=== PATIENT | male | born 1960 ===

== ENCOUNTER 2016-08-05 15:04 | Inpatient (IN) | payer OTHER ==
[~2016-08-05] VITALS: Ht 172.7 cm; Wt 76.6 kg
[2016-08-05] MEDS ORDERED: SODIUM CHLORIDE 0.9% 1000ML 1,000 ML IV STA (15:24)
[2016-08-05] MEDS ORDERED: MULTI-VITAMIN INFUSION INJ 10 ML, THIAMINE HCL INJ 100 MG, FoLIC ACID INJ 1 MG in SODIU... IV ONE (15:30)
[2016-08-05 15:48] LABS: BASO % 0.2 %; BASO ABS # 0.03 K/uL (0-0.2); COMPLETE YES; EOS % 0.2 %; HEMATOCRIT 44.3 % (42-52); IG% 0.7 %; LYMPH % 14.7 %; LYMPH ABS # 1.99 K/uL (1.2-3.4); MEAN CELL VOLUME 101.6 fL (80-100); MEAN CORPUSCULAR HGB CONC 32.5 g/dl (32-36); MEAN PLATELET VOLUME 10.4 fL (7.4-10.4); MONO % 18.7 %; NEUT % 65.5 %; PLATELET COUNT 171 K/uL (130-400); RED BLOOD COUNT 4.36 M/uL (4.7-6.1)
[2016-08-05 15:59] VITALS: O2SAT 95
[2016-08-05 16:05] LABS: BUN/CREATININE RATIO 11.3 (10-20); CALCIUM 9.4 mg/dl (8.5-10.1); CREATININE 3.3 mg/dl (0.60-1.40); POTASSIUM 2.8 mmol/L (3.5-5.1)
[2016-08-05 16:08] LABS: PARTIAL THROMBOPLASTIN RATIO 0.9; PROTHROMBIN TIME (PATIENT) 10.6 SECONDS (9.0-12.0)
--- NOTE | 2016-08-05 16:12 | DIAGNOSTIC IMAGING REPORT ---
CT HEAD WITHOUT CONTRAST (CT) CLINICAL HISTORY: Acute change in mental status COMPARISON STUDY: No previous studies for comparison. TECHNIQUE: Axial CT of the brain is performed from the vertex to the skull base. IV contrast was not administered for this examination. CT DOSE: 884.08 mGy.cm FINDINGS: No intra or extra-axial mass lesions are visualized. There is no CT evidence of acute cortical infarction. There is no evidence of midline shift. There is no acute hemorrhage. No calvarial fractures are visualized. There are minimal white matter hypodensities likely on a small vessel basis. There is no evidence of pathologic ventricular dilatation. There is no evidence of acute sinusitis. There is a right maxillary sinus retention cyst. IMPRESSION: No acute intracranial findings Electronically signed by: Jonel Talavera M.D. 08/05/2016 4:10 PM Dictated Date/Time: 08/05/2016 4:09 PM
[2016-08-05] MEDS ORDERED: THIA100T11 PO (16:14)
[2016-08-05] MEDS ORDERED: CHLO25CA9 PO (16:14)
[2016-08-05] MEDS ORDERED: THIA100T13 PO (16:14)
[2016-08-05] MEDS ORDERED: PRVHFAIN INH (16:14)
[2016-08-05] MEDS ORDERED: [UNRECOGNIZED DRUG - CODE] IM (16:18)
[2016-08-05] MEDS ORDERED: CHLORDIAZEPOXIDE 25 MG CAP PO SCH (17:00)
[2016-08-05] MEDS ORDERED: ALUMINUM/MAGNESIUM/SIMETH (MAALOX MAX) 30 ML UDC PO PRN (17:00)
[2016-08-05] MEDS ORDERED: POLYETHYLENE (MIRALAX) 17 GM PACK PO PRN (17:00)
[2016-08-05] MEDS ORDERED: NITROGLYCERIN 0.4 MG SL PER TAB CHARGE SL PRN (17:00)
[2016-08-05] MEDS ORDERED: ONDANSETRON INJ 2 MG/ML 2 ML VIAL IV PRN (17:00)
[2016-08-05] MEDS ORDERED: MAGNESIUM HYDROXIDE SUSP 30 ML UDC PO PRN (17:00)
[2016-08-05] MEDS ORDERED: GABAPENTIN 600 MG TAB PO SCH (17:00)
[2016-08-05] MEDS ORDERED: LORAZEPAM 1 MG TAB PO PRN ×2 (17:00)
[2016-08-05] MEDS ORDERED: ALBUTEROL HFA 8 GM INHALER INH PRN (17:00)
--- NOTE | 2016-08-05 17:27 | History and Physical ---
History & Physical Date & Time of Service: Aug 05, 2016 at 17:03 Chief Complaint: Alcohol Withdrawl Primary Care Physician: Jonna AGRAWAL History of Present Illness Source: patient, hospital records Patient is a 56 y/o male, with significant PMHx of alcohol and tobacco abuse, who presented to the ED from Jonna AGRAWAL due to hallucinations/alcohol withdrawal. Patient has been placed on Librium and Thiamine Jonna AGRAWAL for alcohol detox process. Per ED records, patient started to experiencing hallucinations today. ROS and HPI per patient unreliable secondary to mental status. According to the patient, he takes a "whole list" of medications, but cannot state what medications or for what condition. Patient states he is experiencing intermittent left-sided chest pain that radiates "everywhere." Patient admits to chronic SOB due to COPD. Patient denies any urinary symptoms, but admits to dark urine at times. Patient states he has been a heavy drinker for many years. Per patient, his last drink was 14 days ago. He denies any cardiac history. He states he has a spot on his liver and kidney, but they have done biopsies, and "no one knows what it is." He admits to bilateral lower extremity numbness/tingling/weakness secondary to back surgery. He states he has been eating and drinking OK. Complete positive ROS. Limited HPI/PMHx/Surgical history/FHx secondary to mental status/no past records available Past Medical/Surgical History Medical Problems- limited PMHx secondary to patient's mental status: 1. Alcohol abuse 2. Tobacco abuse Surgical history- limited/unsure of reliability secondary to mental status: 1. Colectomy s/p ostomy- resolved 2. Back surgery Family History Family history not obtained secondary to patients mental status Social History Smoking Status: Current Every Day Smoker Allergies Coded Allergies: No Known Allergies (Unverified , 08/05/16) Home Medications Scheduled Chlordiazepoxide Hcl (Librium), 50 MG PO UD Thiamine Hcl (Vitamin B-1), 100 MG PO UD Thiamine Hcl (Thiamine Hcl), 100 MG IM UD Scheduled PRN Albuterol (Ventolin Hfa), 2 PUFFS INH QID PRN for SOB/Wheezing Physical Exam Vital Signs Date Time Temp Pulse Resp B/P Pulse Ox O2 Delivery O2 Flow Rate FiO2 08/05/16 16:31 87 08/05/16 15:59 94 18 106/64 95 4/22/17 15:08 36.9 111 20 90/62 93 Room Air General Appearance: no apparent distress Head: normocephalic, atraumatic Eyes: PERRL, + abnormal sclerae exam (icterus ) ENT: hearing grossly normal Neck: supple Respiratory/Chest: lungs clear, no respiratory distress, no accessory muscle use Cardiovascular: regular rate, rhythm Abdomen/GI: normal bowel sounds, non tender, soft Extremities/Musculoskelatal: no calf tenderness, no pedal edema Neurologic/Psych: alert, normal mood/affect, oriented x 3 Skin: warm/dry, no rash Diagnostics Laboratory Results Results Past 24 Hours Test 08/05/16 15:36 08/05/16 15:39 Range/Units White Blood Count 13.50 4.8-10.8 K/uL Red Blood Count 4.36 4.7-6.1 M/uL Hemoglobin 14.4 14.0-18.0 g/dL Hematocrit 44.3 42-52 % Mean Corpuscular Volume 101.6 80-100 fL Mean Corpuscular Hemoglobin 33.0 25-34 pg Mean Corpuscular Hemoglobin Concent 32.5 32-36 g/dl Platelet Count 171 130-400 K/uL Mean Platelet Volume 10.4 7.4-10.4 fL Neutrophils (%) (Auto) 65.5 % Lymphocytes (%) (Auto) 14.7 % Monocytes (%) (Auto) 18.7 % Eosinophils (%) (Auto) 0.2 % Basophils (%) (Auto) 0.2 % Neutrophils # (Auto) 8.84 1.4-6.5 K/uL Lymphocytes # (Auto) 1.99 1.2-3.4 K/uL Monocytes # (Auto) 2.52 0.11-0.59 K/uL Eosinophils # (Auto) 0.03 0-0.5 K/uL Basophils # (Auto) 0.03 0-0.2 K/uL RDW Standard Deviation 54.9 36.4-46.3 fL RDW Coefficient of Variation 14.8 11.5-14.5 % Immature Granulocyte % (Auto) 0.7 % Immature Granulocyte # (Auto) 0.09 0.00-0.02 K/uL Prothrombin Time 10.6 9.0-12.0 SECONDS Prothromb Time International Ratio 1.0 0.9-1.1 Activated Partial Thromboplast Time 23.9 21.0-31.0 SECONDS Partial Thromboplastin Ratio 0.9 Sodium Level 142 136-145 mmol/L Potassium Level 2.8 3.5-5.1 mmol/L Chloride Level 100 98-107 mmol/L Carbon Dioxide Level 29 21-32 mmol/L Anion Gap 13.0 3-11 mmol/L Blood Urea Nitrogen 37 7-18 mg/dl Creatinine 3.30 0.60-1.40 mg/dl Est Creatinine Clear Calc Drug Dose 23.9 ml/min Estimated GFR () 22.8 Estimated GFR (Non- 19.6 BUN/Creatinine Ratio 11.3 10-20 Random Glucose 99 70-99 mg/dl Calcium Level 9.4 8.5-10.1 mg/dl Magnesium Level 1.8 1.8-2.4 mg/dl Total Bilirubin 1.4 0.2-1 mg/dl Direct Bilirubin 0.5 0-0.2 mg/dl Aspartate Amino Transf (AST/SGOT) 44 15-37 U/L Alanine Aminotransferase (ALT/SGPT) 51 12-78 U/L Alkaline Phosphatase 148 45-117 U/L Ammonia 14.0 11-32 umol/L Total Protein 7.7 6.4-8.2 gm/dl Albumin 4.1 3.4-5.0 gm/dl Bedside Troponin I 0.010 0-0.045 ng/ml Diagnostic Radiology CT HEAD WITHOUT CONTRAST (CT) CLINICAL HISTORY: Acute change in mental status COMPARISON STUDY: No previous studies for comparison. TECHNIQUE: Axial CT of the brain is performed from the vertex to the skull base. IV contrast was not administered for this examination. CT DOSE: 884.08 mGy.cm FINDINGS: No intra or extra-axial mass lesions are visualized. There is no CT evidence of acute cortical infarction. There is no evidence of midline shift. There is no acute hemorrhage. No calvarial fractures are visualized. There are minimal white matter hypodensities likely on a small vessel basis. There is no evidence of pathologic ventricular dilatation. There is no evidence of acute sinusitis. There is a right maxillary sinus retention cyst. IMPRESSION: No acute intracranial findings Electronically signed by: Jonel Talavera M.D. 08/05/2016 4:10 PM Dictated Date/Time: 08/05/2016 4:09 PM The status of this report is Signed. Draft = Not yet reviewed or approved by Radiologist. Signed = Reviewed and approved by Radiologist. EKG ROSA HANSEN ID:[id number] 05-AUG-2016 15:31:20 [facility] Normal sinus rhythm Septal infarct , age undetermined Abnormal ECG No previous ECGs available 25mm/s 10mm/mV 150Hz 8.0 SP2 12SL 241 ALESSANDRO: 13 Referred by: Jonna SCI Unconfirmed Vent. rate 97 BPM VT interval 160 ms QRS duration 86 ms QT/QTc 372/472 ms P-R-T axes 16 72 125 1960 (56 yr) Male Room: Loc:15 Flying Teacher:SILVIO Borjas ind: Impression Assessment and Plan 56 y/o male, with significant PMHx of alcohol and tobacco abuse, who presented to the ED from TANJA Coyle due to hallucinations/alcohol withdrawal. Hallucinations, likely secondary to alcohol withdrawal: - Admit to tele for cardiac monitoring - Trend cardiac enzymes- initial trop negative - Abnormal EKG- repeat tomorrow AM and PRN w/ CP - Alcohol withdrawal protocol - CT of head- no acute intracranial findings - Check b12/folate/thiamine ?PADDY on CKD, ?stage IV: - Tread w/ IVF - Follow PRP - Consider renal US if kidney function does not improve with IVF Hypokalemia: Replete w/ IVF + 40 mEq KCL Leukocytosis: - Pending UA - No s/s of infections at this time- no need for antibiotics at this time- continue to follow CBC Elevated LFTs, ?secondary to alcoholic cirrhosis: - Follow CMP - Consider liver US if worsening Tobacco abuse: Smoking cessation counselling GI Prophylaxis: Protonix, Maalox PRN, IV Zofran PRN, Colace and/or Milk of Mag PRN DVT prophylaxis: Heparin 5000 units SQ q12 hrs, DAVID and SCDs Code Status: LEVEL I, FULL Dispo: From Jonna AGRAWAL Level of Care Telemetry Resuscitation Status FULL RESUSCITATION VTE Prophylaxis VTE Risk Assessment Done? Y/N: Yes Risk Level: Moderate Given or contraindicated: Unfractionated heparin SQ, T.E.D. Stockings, SCD's Assessment and Plan Attending Addendum: I have physically seen and examined this patient, have directed their medical care, have supervised the PA's activity, and agree with the H&P as noted above, with the following changes: NONE.
[2016-08-05 18:47] VITALS: Ht 172.7 cm; Wt 76.6 kg
--- NOTE | 2016-08-05 19:01 | DIAGNOSTIC IMAGING REPORT ---
CHEST 2 VIEWS ROUTINE CLINICAL HISTORY: Pneumonia COMPARISON STUDY: No previous studies for comparison. FINDINGS: The heart is normal in size. There are multiple old rib fractures. There is a severe compression fracture the thoracolumbar junction. There is interstitial thickening. There are more focal airspace opacities the left lung base, suspicious for pneumonia. Radiographic follow-up is recommended. There is an ovoid calcification adjacent the right humeral neck. [ IMPRESSION: 1. Interstitial thickening 2. Left basal airspace opacities suspicious for pneumonia. Radiographic follow-up is recommended. Electronically signed by: Jonel Talavera M.D. 08/05/2016 6:59 PM Dictated Date/Time: 08/05/2016 6:58 PM
--- NOTE | 2016-08-05 19:48 | EMERGENCY ROOM VISIT NOTE ---
History Report prepared by Mariam: Oleg Moss Under the Supervision of: Dr. Nikolay Rios M.D. First contact with patient: 15:15 Chief Complaint: ALTERED MENTAL STATUS Stated Complaint: ALCOHOL WITHDRAWL History of Present Illness The patient is a 56 year old male who presents to the Emergency Room with complaints of intermittent hallucinations beginning today. He is currently incarcerated for violating parole and has been detoxing from alcohol for over a week. He states that he has been drinking significant amounts of alcohol for the past year. Per [employer], the patient began hallucinating today. The patient states that he believes that "the green pills" that he was given was causing his hallucinations. He believes the pills were Librium. He states that his chronic pain is related to a lower spinal surgery that has now caused him to have some baseline numbness in his legs. He denies any recent falls or trauma. The patient also complains of some shortness of breath and chest pain. He states that his shortness of breath is unchanged from his baseline, and that he uses an inhaler for emphysema. His chest pain was present two days ago intermittently, and would be present for 10 seconds at a time, occurring roughly every 30 minutes. He describes the pain as very sharp and fleeting. It was located over the left sternal border. The patient notes that he has very poor vision at baseline but denies any acute visual changes. He denies any black or bloody stools. Source of History: patient Onset: today Position: other (goal) Quality: other (hallucinations) Timing: resolved Modifying Factors (Worsening): other (green pills) Associated Symptoms: + SOB (unchanged from baseline), + chest pain (two days ago, intermittently ), No hematochezia, No melena Review of Systems See HPI for pertinent positives & negatives. A total of 10 systems reviewed and were otherwise negative. Past Medical & Surgical Social History Problems: (1) Alcohol abuse Family History No pertinent family history stated. Social History Smoking Status: Current Every Day Smoker Housing Status: other (incarcerated) Occupation Status: other (incarcerated) Current/Historical Medications Scheduled Chlordiazepoxide Hcl (Librium), 50 MG PO UD Thiamine Hcl (Vitamin B-1), 100 MG PO UD Thiamine Hcl (Thiamine Hcl), 100 MG IM UD Scheduled PRN Albuterol (Ventolin Hfa), 2 PUFFS INH QID PRN for SOB/Wheezing Allergies Coded Allergies: No Known Allergies (Unverified , 08/05/16) Physical Exam Vital Signs Date Time Temp Pulse Resp B/P Pulse Ox O2 Delivery O2 Flow Rate FiO2 08/05/16 18:47 Room Air 08/05/16 16:31 87 08/05/16 15:59 94 18 106/64 95 08/05/16 15:08 36.9 111 20 90/62 93 Room Air Physical Exam Constitutional: Vital signs reviewed. Eyes: Pupils are equal round reactive to light. Conjunctiva are noninjected. ENT: Pharynx is clear without erythema or exudate. Mucous membranes are moist. Neck supple without meningeal signs. Respiratory: Clear to auscultation bilaterally. Breath sounds are equal bilaterally. Cardiovascular: Regular rate and rhythm. No rubs or gallops. GI: Soft, nondistended and nontender. Bowel sounds are present. Musculoskeletal: No peripheral edema. No lower extremity tenderness. Integumentary: No cyanosis. Neurological: The patient is awake, alert and oriented x3. Cranial nerves II- XII are intact. Motor is 5 out of 5 all extremities. Sensation is intact to light touch all extremities. Normal speech. No pronator drift. No asterixis. Psychiatric: Normal affect. Medical Decision & Procedures ER Provider Diagnostic Interpretation: CT results as stated below per my review and radiologist interpretation. CT HEAD WITHOUT CONTRAST (CT) FINDINGS: No intra or extra-axial mass lesions are visualized. There is no CT evidence of acute cortical infarction. There is no evidence of midline shift. There is no acute hemorrhage. No calvarial fractures are visualized. There are minimal white matter hypodensities likely on a small vessel basis. There is no evidence of pathologic ventricular dilatation. There is no evidence of acute sinusitis. There is a right maxillary sinus retention cyst. IMPRESSION: No acute intracranial findings Electronically signed by: Jonel Talavera M.D. Laboratory Results 08/05/16 15:36 Red Blood Count 4.36, Mean Corpuscular Volume 101.6, Mean Corpuscular Hemoglobin 33.0, Mean Corpuscular Hemoglobin Concent 32.5, Mean Platelet Volume 10.4, Neutrophils (%) (Auto) 65.5, Lymphocytes (%) (Auto) 14.7, Monocytes (%) ( Auto) 18.7, Eosinophils (%) (Auto) 0.2, Basophils (%) (Auto) 0.2, Neutrophils # (Auto) 8.84, Lymphocytes # (Auto) 1.99, Monocytes # (Auto) 2.52, Eosinophils # ( Auto) 0.03, Basophils # (Auto) 0.03 08/05/16 15:36 Test 08/05/16 15:36 08/05/16 15:39 08/05/16 18:37 White Blood Count 13.50 K/uL (4.8-10.8) Red Blood Count 4.36 M/uL (4.7-6.1) Hemoglobin 14.4 g/dL (14.0-18.0) Hematocrit 44.3 % (42-52) Mean Corpuscular Volume 101.6 fL (80-100) Mean Corpuscular Hemoglobin 33.0 pg (25-34) Mean Corpuscular Hemoglobin Concent 32.5 g/dl (32-36) Platelet Count 171 K/uL (130-400) Mean Platelet Volume 10.4 fL (7.4-10.4) Neutrophils (%) (Auto) 65.5 % Lymphocytes (%) (Auto) 14.7 % Monocytes (%) (Auto) 18.7 % Eosinophils (%) (Auto) 0.2 % Basophils (%) (Auto) 0.2 % Neutrophils # (Auto) 8.84 K/uL (1.4-6.5) Lymphocytes # (Auto) 1.99 K/uL (1.2-3.4) Monocytes # (Auto) 2.52 K/uL (0.11-0.59) Eosinophils # (Auto) 0.03 K/uL (0-0.5) Basophils # (Auto) 0.03 K/uL (0-0.2) RDW Standard Deviation 54.9 fL (36.4-46.3) RDW Coefficient of Variation 14.8 % (11.5-14.5) Immature Granulocyte % (Auto) 0.7 % Immature Granulocyte # (Auto) 0.09 K/uL (0.00-0.02) Prothrombin Time 10.6 SECONDS (9.0-12.0) Prothromb Time International Ratio 1.0 (0.9-1.1) Activated Partial Thromboplast Time 23.9 SECONDS (21.0-31.0) Partial Thromboplastin Ratio 0.9 Anion Gap 13.0 mmol/L (3-11) Est Creatinine Clear Calc Drug Dose 23.9 ml/min Estimated GFR () 22.8 Estimated GFR (Non- 19.6 BUN/Creatinine Ratio 11.3 (10-20) Calcium Level 9.4 mg/dl (8.5-10.1) Magnesium Level 1.8 mg/dl (1.8-2.4) Total Bilirubin 1.4 mg/dl (0.2-1) Direct Bilirubin 0.5 mg/dl (0-0.2) Aspartate Amino Transf (AST/SGOT) 44 U/L (15-37) Alanine Aminotransferase (ALT/SGPT) 51 U/L (12-78) Alkaline Phosphatase 148 U/L (45-117) Ammonia 14.0 umol/L (11-32) Total Protein 7.7 gm/dl (6.4-8.2) Albumin 4.1 gm/dl (3.4-5.0) Bedside Troponin I 0.010 ng/ml (0-0.045) Vitamin B12 Level 1081 pg/mL (211-911) Folate > 24.00 ng/mL (>5.38) Laboratory results as reviewed by me. Medications Administered Medications (Trade) Dose Ordered Sig/Raquel Route Start Time Stop Time Status Last Admin Dose Admin Sodium Chloride 1,000 ml @ 999 mls/hr Q1H1M STAT IV 08/05/16 15:24 08/05/16 16:24 DC 08/05/16 15:43 999 MLS/HR Multivitamins/ Thiamine HCl/ Folic Acid/Sodium Chloride (Mvi Infusion Inj/Vitamin B-1 Inj/Folvite Inj/ Nss 1000ml) 1,011.2 ml @ 500 mls/ hr Q2H2M ONCE IV 08/05/16 15:30 08/05/16 17:31 DC 08/05/16 16:23 500 MLS/HR ECG Indication: chest pain Rate (beats per minute): 97 Rhythm: normal sinus Findings: Q waves (Inferior), no ectopy Comparison ECG Date: no prior available ED Course 1514: The patient was evaluated in room C9. A complete history and physical exam was performed. 1524: Ordered Sodium Chloride 1000 ml @ 999 mls/hr IV. 1530: Ordered Multivitamins 10 mL/Thiamine HCl 100 mg/Folic Acid 100 mg/Sodium Chloride 1011.2 ml @ 500 mls/hr IV. 1620: I reassessed the patient. His blood pressure is now 132/60. He states that he has no history of kidney disease other than having "a spot" on his kidney. He notes that he has urinated eight times today. 1637: I discussed the patient's test results and treatment plan with him. He verbalized agreement and understanding. The patient will be evaluated for further management. Medical Decision This is a 56-year-old male sent here for evaluation of hallucinations with hypotension. Differential diagnosis includes Wernicke's encephalopathy, alcohol withdrawal, metabolic derangement, intracranial mass, intracranial hemorrhage, infection, dehydration. I did perform a limited focused review of portions of the patient's old chart on the electronic medical record. The patient has had no recent pertinent visits to this hospital. I did evaluate the patient as noted above. IV access was established. The patient was placed on a continuous teletypesetter monitor. He is slightly hypertensive. He was given a liter normal saline IV. He was also given a banana bag IV. His blood pressure did improve. I did order and personally review the patient's 12-lead EKG as described above. I did order and review the patient's blood work as noted in the electronic medical record. He has hypokalemia and a creatinine of 3.3. I did reassess the patient. I did discuss the test results with him. He states that he has no history of kidney problems. I therefore recommend hospitalization for further evaluation. I did order a CT of the head. I did review the images myself as well as the radiology report as described above. I did discuss the case with the hospitalist and case specialist. Impression Primary Impression: Acute renal failure Additional Impressions: Hypotension Hallucination Hypokalemia Scribe Attestation The scribe's documentation has been prepared under my direct and personally reviewed by me in its entirety. I confirm that the note above accurately reflects all work, treatment, procedures, and medical decision making performed by me. Departure Information Dispostion Being Evaluated By Hospitalist Forms HOME CARE DOCUMENTATION FORM, IMPORTANT VISIT INFORMATION Patient Instructions My [facility] Problem Qualifiers Primary Impression: Acute renal failure Acute renal failure type: unspecified Qualified Codes: N17.9 - Acute kidney failure, unspecified Additional Impressions: Hypotension Hypotension type: unspecified hypotension type Qualified Codes: I95.9 - Hypotension, unspecified
[2016-08-05 19:58] VITALS: BP 166/109; PULSE 92; TEMP 36.7; O2SAT 92
[2016-08-05 20:13] LABS: URINE APPEARANCE CLEAR (CLEAR); URINE COLOR DK YELLOW; URINE EPITHELIAL CELL AUTO >30 /lpf (0-5); URINE NITRITE NEG (NEG); URINE SPECIFIC GRAVITY 1.014 (1.000-1.030); UROBILINOGEN NEG (NEG); ZZUR CULT IF INDIC CLEAN CATCH NO
[2016-08-05 20:38] LABS: MANUAL MICROSCOPIC REQUIRED? NO; REVIEW REQ? YES
[2016-08-05 20:41] LABS: URINE BILIRUBIN NEG (NEG)
[2016-08-05] MEDS ORDERED: MULTI-VITAMIN INFUSION INJ 10 ML, THIAMINE HCL INJ 100 MG, FoLIC ACID INJ 1 MG in SODIU... IV SCH (20:45)
[2016-08-05] MEDS: LORAZEPAM 1 MG TAB PO PRN ×3 (20:47→23:15)
[2016-08-05 20:48] VITALS: BP 143/92; PULSE 97; TEMP 36.7; O2SAT 91
[2016-08-05] MEDS: HEPARIN SOD 5000 UNIT/0.5 ML CARP SQ SCH (21:18)
[2016-08-05] MEDS: CHLORDIAZEPOXIDE 25MG 1ST DOSE PO SCH (22:20)
[2016-08-05 22:35] VITALS: BP 158/101; PULSE 83; TEMP 36.4; O2SAT 95
[2016-08-05] MEDS: POTASSIUM CHLORIDE INJ 40 MEQ in SODIUM CHLORIDE 0.9% 1000ML 1,000 ML IV SCH (23:27)
[2016-08-05 23:45] VITALS: BP 154/115; PULSE 94; TEMP 36.6; O2SAT 95
[2016-08-05 23:50] VITALS: BP 154/115
[2016-08-06] VITALS (12 sets, daily range): BP systolic 143–175; BP diastolic 92–123; PULSE 64–103; TEMP 36.4–36.9; O2SAT 90–96
[2016-08-06] MEDS: LORAZEPAM 1 MG TAB PO PRN ×5 (01:19→13:56)
[2016-08-06] MEDS ORDERED: NURSING VERBAL MED ORDER ONE ×4 (01:30→10:45)
[2016-08-06] MEDS ORDERED: CLONIDINE HCL 0.1 MG TAB PO STA (01:42)
[2016-08-06] MEDS: CHLORDIAZEPOXIDE 25MG 1ST DOSE PO SCH ×3 (06:32→18:05)
[2016-08-06 06:42] LABS: MEAN CELL VOLUME 102.4 fL (80-100); MEAN CORPUSCULAR HEMOGLOBIN 33.2 pg (25-34); MEAN CORPUSCULAR HGB CONC 32.4 g/dl (32-36); MEAN PLATELET VOLUME 9.8 fL (7.4-10.4); PLATELET COUNT 162 K/uL (130-400); WHITE BLOOD COUNT 10.38 K/uL (4.8-10.8)
[2016-08-06 07:23] LABS: ALB/GLOB RATIO 1.1 (0.9-2); ALKALINE PHOSPHATASE 148 U/L (45-117); ALT/SGPT 51 U/L (12-78); AST/SGOT 56 U/L (15-37); BLOOD UREA NITROGEN 30 mg/dl (7-18); BUN/CREATININE RATIO 20.3 (10-20); CALCIUM 9.1 mg/dl (8.5-10.1); CARBON DIOXIDE 29 mmol/L (21-32); CHLORIDE 107 mmol/L (98-107); GLUCOSE 79 mg/dl (70-99); POTASSIUM 2.9 mmol/L (3.5-5.1); SODIUM 143 mmol/L (136-145)
[2016-08-06] MEDS: PANTOprazole SOD 40 MG TAB PO SCH (07:25)
[2016-08-06] MEDS: CLONIDINE HCL 0.1 MG TAB PO SCH ×2 (07:25→22:15)
[2016-08-06] MEDS: THIAMINE HCL 100 MG TAB PO SCH (07:25)
[2016-08-06] MEDS: HEPARIN SOD 5000 UNIT/0.5 ML CARP SQ SCH ×2 (09:00→22:19)
[2016-08-06] MEDS ORDERED: CLONIDINE HCL 0.1 MG TAB PO SCH (09:00)
[2016-08-06] MEDS ORDERED: POTASSIUM CHLORIDE 20 MEQ TABCR PO ONE ×2 (09:30→16:45)
[2016-08-06] MEDS: POTASSIUM CHLORIDE INJ 40 MEQ in SODIUM CHLORIDE 0.9% 1000ML 1,000 ML IV SCH ×2 (10:31→22:16)
[2016-08-06] MEDS ORDERED: HydrALAZINE HCL 20 MG/ML VIAL ONE (10:58)
[2016-08-06] MEDS ORDERED: HydrALAZINE HCL 20 MG/ML VIAL IV. PRN (11:00)
--- NOTE | 2016-08-06 15:34 | Progress Note ---
Subjective Date of Service: Aug 06, 2016. Subjective Pt evaluation today including: conversation w/ patient, physical exam, chart review, lab review, review of studies, review of inpatient medication list Pain: no pain reported Voiding: no voiding problems, no incontinence Pt is seen and examined by me. Patient is confused, agitated and trying to leave the room. Patient states that he feels a slight curette crawling on his arms. Patient is hallucinating. Patient is not in any acute cardiorespiratory distress. Patient is currently on alcohol withdrawal protocol. Patient case was discussed with the loan supervisor for possible upgrade. Problem List Medical Problems: (1) Acute renal failure Status: Acute (2) Hallucination Status: Acute (3) Hypokalemia Status: Acute (4) Hypotension Status: Acute Review of Systems pt is confused ,agitated and unable to provide ROS Medications Medications (Trade) Dose Ordered Sig/Raquel Route Start Time Stop Time Status Last Admin Dose Admin Sodium Chloride 1,000 ml @ 999 mls/hr Q1H1M STAT IV 08/05/16 15:24 08/05/16 16:24 DC 08/05/16 15:43 999 MLS/HR Multivitamins 10 ml/Thiamine HCl 100 mg/Folic Acid 1 mg/Sodium Chloride 1,011.2 ml @ 500 mls/ hr Q2H2M ONCE IV 08/05/16 15:30 08/05/16 17:31 DC 08/05/16 16:23 500 MLS/HR Multivitamins/ Thiamine HCl/ Folic Acid/Sodium Chloride (Mvi Infusion Inj/Vitamin B-1 Inj/Folvite Inj/ Nss 1000ml) 1,011.2 ml @ 500 mls/ hr Q2H2M IV 08/05/16 20:45 08/05/16 22:46 DC 08/05/16 21:15 500 MLS/HR Thiamine HCl (Vitamin B-1 Tab) 100 mg DAILY PO 08/06/16 09:00 09/05/16 08:59 08/06/16 07:25 100 MG Heparin Sodium (Porcine) 5000 unit 5,000 unit Q12 SQ 08/05/16 21:00 09/04/16 20:59 08/05/16 21:18 5,000 UNIT Potassium Chloride/Sodium Chloride (KCl Inj/Nss 1000ml) 1,020 ml @ 100 mls/hr [id number] IV 08/05/16 23:00 09/04/16 22:59 08/06/16 10:31 100 MLS/HR Pantoprazole Sodium (Protonix Tab) 40 mg QAM PO 08/06/16 09:00 09/05/16 08:59 08/06/16 07:25 40 MG Lorazepam (Ativan Tab) SEE PROTOCOL TEXT UD PRN PO 08/05/16 20:45 09/04/16 20:44 08/06/16 13:56 1 MG Chlordiazepoxide (Librium Cap) 25 mg 0600,1200,1800,2200 PO 08/05/16 22:00 08/06/16 18:01 08/06/16 13:50 25 MG Clonidine HCl (Catapres Tab) 0.1 mg NOW STAT PO 08/06/16 01:42 08/06/16 01:43 DC 08/06/16 02:06 0.1 MG Clonidine HCl (Catapres Tab) 0.2 mg BID PO 08/06/16 09:00 09/05/16 08:59 08/06/16 07:25 0.2 MG Potassium Chloride (Klor-Con Tab) 40 meq NOW ONCE PO 08/06/16 09:30 08/06/16 09:31 DC 08/06/16 10:21 40 MEQ Hydralazine HCl (HydrALAZINE INJ) 20 mg STK-MED ONCE .ROUTE 08/06/16 10:58 08/06/16 10:59 DC 08/06/16 10:55 10 MG Objective Vital Signs Date Time Temp Pulse Resp B/P Pulse Ox O2 Delivery O2 Flow Rate FiO2 08/06/16 06:37 98 20 170/123 94 Room Air 08/06/16 04:53 22 93 Room Air 08/06/16 04:19 77 20 156/101 91 Room Air 08/06/16 04:00 Room Air 08/06/16 03:45 36.6 92 16 164/110 92 Room Air 08/06/16 01:47 36.5 92 18 160/105 92 Room Air 08/06/16 00:50 36.6 94 16 157/110 96 Room Air 08/06/16 00:00 Room Air 08/05/16 23:50 154/115 08/05/16 23:45 36.6 94 18 154/115 95 Room Air 08/05/16 22:35 36.4 83 158/101 95 Room Air 08/05/16 20:48 36.7 97 18 143/92 91 Room Air 08/05/16 19:58 36.7 92 16 166/109 92 Room Air 08/05/16 18:47 Room Air 08/05/16 16:31 87 08/05/16 15:59 94 18 106/64 95 08/05/16 15:08 36.9 111 20 90/62 93 Room Air Physical Exam General Appearance: + pertinent finding (confused, and agiatated, trying to leave the room) Neck: supple Respiratory/Chest: chest non-tender, lungs clear, no respiratory distress Cardiovascular: regular rate, rhythm, no gallop, no murmur Abdomen: normal bowel sounds, non tender, soft Extremities: normal range of motion, non-tender, no pedal edema Neurologic/Psychiatric: + pertinent finding (unable to peform) Skin: normal color, no rash Lymphatic: no adenopathy Laboratory Results Last 24 Hours Test 08/05/16 15:36 08/05/16 15:39 08/05/16 18:37 08/05/16 19:50 White Blood Count 13.50 K/uL Red Blood Count 4.36 M/uL Hemoglobin 14.4 g/dL Hematocrit 44.3 % Mean Corpuscular Volume 101.6 fL Mean Corpuscular Hemoglobin 33.0 pg Mean Corpuscular Hemoglobin Concent 32.5 g/dl Platelet Count 171 K/uL Mean Platelet Volume 10.4 fL Neutrophils (%) (Auto) 65.5 % Lymphocytes (%) (Auto) 14.7 % Monocytes (%) (Auto) 18.7 % Eosinophils (%) (Auto) 0.2 % Basophils (%) (Auto) 0.2 % Neutrophils # (Auto) 8.84 K/uL Lymphocytes # (Auto) 1.99 K/uL Monocytes # (Auto) 2.52 K/uL Eosinophils # (Auto) 0.03 K/uL Basophils # (Auto) 0.03 K/uL RDW Standard Deviation 54.9 fL RDW Coefficient of Variation 14.8 % Immature Granulocyte % (Auto) 0.7 % Immature Granulocyte # (Auto) 0.09 K/uL Prothrombin Time 10.6 SECONDS Prothromb Time International Ratio 1.0 Activated Partial Thromboplast Time 23.9 SECONDS Partial Thromboplastin Ratio 0.9 Sodium Level 142 mmol/L Potassium Level 2.8 mmol/L Chloride Level 100 mmol/L Carbon Dioxide Level 29 mmol/L Anion Gap 13.0 mmol/L Blood Urea Nitrogen 37 mg/dl Creatinine 3.30 mg/dl Est Creatinine Clear Calc Drug Dose 23.9 ml/min Estimated GFR () 22.8 Estimated GFR (Non- 19.6 BUN/Creatinine Ratio 11.3 Random Glucose 99 mg/dl Calcium Level 9.4 mg/dl Magnesium Level 1.8 mg/dl Total Bilirubin 1.4 mg/dl Direct Bilirubin 0.5 mg/dl Aspartate Amino Transf (AST/SGOT) 44 U/L Alanine Aminotransferase (ALT/SGPT) 51 U/L Alkaline Phosphatase 148 U/L Ammonia 14.0 umol/L Total Protein 7.7 gm/dl Albumin 4.1 gm/dl Bedside Troponin I 0.010 ng/ml Vitamin B12 Level 1081 pg/mL Folate > 24.00 ng/mL Hepatitis C Antibody Screen NEG Urine Color DK YELLOW Urine Appearance CLEAR Urine pH 7.0 Urine Specific [place] 1.014 Urine Protein 1+ Urine Glucose (UA) NEG Urine Ketones 1+ Urine Occult Blood TRACE Urine Nitrite NEG Urine Bilirubin NEG Urine Urobilinogen NEG Urine Leukocyte Esterase NEG Urine WBC (Auto) 1-5 /hpf Urine RBC (Auto) 0-4 /hpf Urine Hyaline Casts (Auto) 10-30 /lpf Urine Epithelial Cells (Auto) >30 /lpf Urine Bacteria (Auto) NEG Urine Renal Epithelial Cells /lpf Urine Crystals URIC ACID Urine Pathogenic Casts See comments /lpf Test 08/05/16 23:00 08/06/16 06:30 Creatine Kinase MB 3.7 ng/ml 4.0 ng/ml Creatine Kinase MB Ratio Troponin I 0.039 ng/ml 0.044 ng/ml White Blood Count 10.38 K/uL Red Blood Count 4.10 M/uL Hemoglobin 13.6 g/dL Hematocrit 42.0 % Mean Corpuscular Volume 102.4 fL Mean Corpuscular Hemoglobin 33.2 pg Mean Corpuscular Hemoglobin Concent 32.4 g/dl RDW Standard Deviation 55.1 fL RDW Coefficient of Variation 14.7 % Platelet Count 162 K/uL Mean Platelet Volume 9.8 fL Sodium Level 143 mmol/L Potassium Level 2.9 mmol/L Chloride Level 107 mmol/L Carbon Dioxide Level 29 mmol/L Anion Gap 7.0 mmol/L Blood Urea Nitrogen 30 mg/dl Creatinine 1.50 mg/dl Est Creatinine Clear Calc Drug Dose 52.6 ml/min Estimated GFR () 59.0 Estimated GFR (Non- 50.9 BUN/Creatinine Ratio 20.3 Random Glucose 79 mg/dl Calcium Level 9.1 mg/dl Total Bilirubin 1.0 mg/dl Aspartate Amino Transf (AST/SGOT) 56 U/L Alanine Aminotransferase (ALT/SGPT) 51 U/L Alkaline Phosphatase 148 U/L Total Protein 6.6 gm/dl Albumin 3.4 gm/dl Globulin 3.2 gm/dl Albumin/Globulin Ratio 1.1 Assessment and Plan 56 y/o male, with significant PMHx of alcohol and tobacco abuse, who presented to the ED from [facility] due to hallucinations/alcohol withdrawal. Hallucinations, likely secondary to alcohol withdrawal: - Continue tele for cardiac monitoring - Cardiac enzymes negative - Alcohol withdrawal protocol - CT of head- no acute intracranial findings - Case discussed with Dr Patino loan supervisor, if needed to upgrade to ICU for possible DT. PADDY on CKD, ? stage IV: - Creatinine trended downward with IVF, from 3.3 to 1.5 - Cont IVF for now. - follow BMP Hypokalemia: Replete w/ IVF + 40 mEq KCL , plus KCl 40Meq Po Bid today. Leukocytosis: - Possible secondary to alcohol - No s/s of infections at this time- no need for antibiotics at this time- continue to follow CBC Elevated LFTs, ?secondary to alcoholic cirrhosis: - Follow CMP - Consider liver US if worsening Tobacco abuse: Smoking cessation counselling GI Prophylaxis: Protonix, Maalox PRN, IV Zofran PRN, Colace and/or Milk of Mag PRN DVT prophylaxis: Heparin 5000 units SQ q12 hrs, DAVID and SCDs Code Status: LEVEL I, FULL Dispo: From [facility] Continued [facility] stay due to: multiple IV medications needed Discharge planning: uncertain
[2016-08-06] MEDS: MAGNESIUM SULFATE 1GM / D5W 1 GM in PREMIXED IN D5W 100 ML IV SCH ×2 (17:57→19:28)
--- NOTE | 2016-08-06 19:40 | DIAGNOSTIC IMAGING REPORT ---
CHEST ONE VIEW PORTABLE HISTORY: chest infiltrate COMPARISON: Chest 08/05/2016. FINDINGS: Mild elevation of left hemidiaphragm. Left basilar patchy airspace opacities persist. No pneumothorax. No pleural effusions. The heart is normal in size. Nodular density the right lung base favors a nipple shadow. Old, healed right-sided rib fractures. There are multiple old left-sided rib fractures. IMPRESSION: No change compared to the prior study. Left basilar densities persist. This could be due to scarring, atelectasis, or pneumonia. One month follow-up is recommended to ensure resolution. Electronically signed by: Romero Alexandre M.D. 08/06/2016 7:38 PM Dictated Date/Time: 08/06/2016 7:36 PM
[2016-08-06] MEDS: CHLORDIAZEPOXIDE 25MG Q8H DOSE PO SCH (23:50)
[2016-08-07 03:35] VITALS: BP 142/94; PULSE 78; TEMP 36.7; O2SAT 96
[2016-08-07] MEDS: POTASSIUM CHLORIDE INJ 40 MEQ in SODIUM CHLORIDE 0.9% 1000ML 1,000 ML IV SCH (06:28)
[2016-08-07 06:53] LABS: HEMATOCRIT 40.2 % (42-52); MEAN CELL VOLUME 103.3 fL (80-100); MEAN CORPUSCULAR HEMOGLOBIN 33.9 pg (25-34); MEAN CORPUSCULAR HGB CONC 32.8 g/dl (32-36); MEAN PLATELET VOLUME 10.4 fL (7.4-10.4); PLATELET COUNT 177 K/uL (130-400); RED BLOOD COUNT 3.89 M/uL (4.7-6.1); WHITE BLOOD COUNT 8.72 K/uL (4.8-10.8)
[2016-08-07 07:22] VITALS: BP 153/97; PULSE 79; TEMP 36.4; O2SAT 91
[2016-08-07 07:31] LABS: BUN/CREATININE RATIO 25.3 (10-20); CALCIUM 8.8 mg/dl (8.5-10.1); CREATININE 0.72 mg/dl (0.60-1.40); POTASSIUM 3.5 mmol/L (3.5-5.1)
[2016-08-07 07:35] LABS: ALB/GLOB RATIO 0.9 (0.9-2)
[2016-08-07] MEDS: PANTOprazole SOD 40 MG TAB PO SCH (09:16)
[2016-08-07] MEDS: CLONIDINE HCL 0.1 MG TAB PO SCH (09:16)
[2016-08-07] MEDS: THIAMINE HCL 100 MG TAB PO SCH (09:16)
[2016-08-07] MEDS: HEPARIN SOD 5000 UNIT/0.5 ML CARP SQ SCH (09:20)
[2016-08-07] MEDS: CHLORDIAZEPOXIDE 25MG Q8H DOSE PO SCH ×2 (09:22→15:24)
[2016-08-07 11:28] VITALS: BP 150/95; PULSE 77; TEMP 36.7; O2SAT 95
--- NOTE | 2016-08-07 14:56 | Discharge Summary ---
Discharge Summary Date of Service Aug 07, 2016. Discharge Summary Admission Date: Aug 05, 2016 at 17:03 Discharge Date: Aug 07, 2016 Discharge Disposition: Home ([facility]) Principal Diagnosis: Alcohol withdrawal Medication Reconciliation New Medications: Amlodipine Besylate (Amlodipine Besylate) 5 Mg Tab 5 MG PO DAILY for 30 Days, #30 TAB Nicotine (Nicotine) 1 Patch Tdsy 14 MG TD DAILY for 42 Days Nicotine (Nicotine) 1 Patch Tdsy 7 MG TD DAILY for 14 Days Continued Medications: Albuterol (Ventolin Hfa) 60 Puffs/5400 Mcg Aers 2 PUFFS INH QID PRN for SOB/Wheezing Chlordiazepoxide Hcl (Librium) 25 Mg Cap 50 MG PO UD, CAP TAPER DOWN DOSING FOLLOWS: TAKE 50 MG THREE TIMES DAILY 08/03/2016 TO 08/06/2016 THEN, TAKE 50 MG TWO TIMES DAILY 08/06/2016 TO 08/08/2016 WITH LAST DOSE AT 0700 HOURS ON O08/08/2016. Thiamine Hcl (Vitamin B-1) 100 Mg Tab 100 MG PO UD, TAB ONCE DAILY STARTIMG 08/06/2016 Thiamine Hcl (Thiamine Hcl) 100 Mg/Ml Inj 100 MG IM UD ADMINISTER ON 08/06/2016 Hospital Course Patient is a 56 y/o male, with significant PMHx of alcohol and tobacco abuse, who [facility]/alcohol withdrawal. Patient has been placed on Librium and Thiamine [facility]. Per ED records, patient started to experiencing hallucinations today. ROS and HPI per patient unreliable secondary to mental status. According to the patient, he takes a "whole list" of medications, but cannot state what medications or for what condition. Patient states he is experiencing intermittent left-sided chest pain that radiates "everywhere." Patient admits to chronic SOB due to COPD. Patient denies any urinary symptoms, but admits to dark urine at times. Patient states he has been a heavy drinker for many years. Per patient, his last drink was 14 days ago. He denies any cardiac history. He states he has a spot on his liver and kidney, but they have done biopsies, and "no one knows what it is." He admits to bilateral lower extremity numbness/tingling/weakness secondary to back surgery. He states he has been eating and drinking OK. Complete positive ROS. 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 (Tapering directions written with discharge). CXR did show a basilar lesion that needs to be followed -up in one month for monitoring. No e/o infectious process and no antibiotics were started. On day of discharge, patient was calm and cooperative and was oriented x3. Has not received ativan IV in 24 hours. Vital Signs Date Time Temp Pulse Resp B/P Pulse Ox O2 Delivery O2 Flow Rate FiO2 08/07/16 12:00 Room Air 08/07/16 11:28 36.7 77 18 150/95 95 nad, aox3, anicteric s1 s2 rrr, no murmurs appreciated ctab no w/r/r abd soft nt/nd +BS no LE edema 1. Alcohol withdrawal - [facility] with tapering doses of librium - alcohol cessation 2. PADDY - likely from decreased po intake - resolved with IV hydration 3. Elevated LFTs - 2/2 etoh abuse - trending down 4. Active smoking - will discharge with nicotine patches - 14mg TD for 6 weeks - taper down to 7 mg TD for 2 weeks then stop 5. HTN - started on amlodipine 5 mg - monitor at [facility] Total Time Spent: Greater than 30 minutes This includes examination of the patient, discharge planning, medication reconciliation, and communication with other providers. Discharge Instructions Please refer to the electronic Patient Visit Report (Discharge Instructions) for additional information. Additional Copies To [facility]
[2016-08-07] MEDS ORDERED: NRV5 PO (15:00)
--- NOTE | 2016-08-07 15:01 | Discharge Instructions ---
Discharge Instructions Date of Service Aug 07, 2016. Admission Reason for Admission: Alcohol Abuse Discharge Discharge Diagnosis / Problem: Alcohol withdrawal Discharge Goals Goal(s): Improve disease control Activity Recommendations Activity Limitations: resume your previous activity . Current Hospital Diet Patient's current hospital diet: Regular Diet Discharge Diet Recommended Diet: Regular Diet Pending Studies Studies pending at discharge: no Medical Emergencies . Who to Call and When: Medical Emergencies: If at any time you feel your situation is an emergency, please call 911 immediately. . Non-Emergent Contact Non-Emergency issues call your: Primary Care Provider . . "Provider Documentation" section prepared by Nicole Lara. . VTE Core Measure Inpt VTE Proph given/why not?: Unfractionated heparin SABRINA, Zena Nunez, SCD 's
[2016-08-07] MEDS ORDERED: NCDT14 TD (15:08)
[2016-08-07] MEDS ORDERED: NCDT21 TD (15:08)
[2016-08-07] MEDS ORDERED: AMLODIPINE BESYLATE 5 MG TAB PO ONE (15:15)
[2016-08-07 15:29] VITALS: BP 150/95; PULSE 77; TEMP 36.7; O2SAT 95
[2016-08-07 16:15] VITALS: BP 114/77; PULSE 100; TEMP 36.5; O2SAT 92
[2016-08-08] MEDS ORDERED: CHLORDIAZEPOXIDE 10MG Q8H DOSE PO SCH
[2016-08-08] MEDS ORDERED: AMLODIPINE BESYLATE 5 MG TAB PO SCH (09:00)
[2016-08-09] MEDS ORDERED: CHLORDIAZEPOXIDE 5MG Q12H DOSE PO SCH (06:00)
== END 2016-08-07 16:47 | DRG 683 ==
LOC: ENRESERVTM → ENRESERVDT → C.EDB 15:08 → C.2T 17:03 → UNDOADMIN 19:25 → C.2T 19:25
PROVIDERS: ADMIT Hospitalist; ATTEND Internal Medicine
DX: N17.9 Acute kidney failure, unspecified (principal); F10.239 Alcohol dependence with withdrawal, unspecified; R44.3 Hallucinations, unspecified; E87.6 Hypokalemia; N18.4 Chronic kidney disease, stage 4 (severe); F17.210 Nicotine dependence, cigarettes, uncomplicated; D72.829 Elevated white blood cell count, unspecified; I12.9 Hypertensive chronic kidney disease with stage 1 through stage 4 chronic kidney disease, or unspecified chronic kidney disease; J44.9 Chronic obstructive pulmonary disease, unspecified; K70.30 Alcoholic cirrhosis of liver without ascites; R07.9 Chest pain, unspecified; I95.9 Hypotension, unspecified; R94.5 Abnormal results of liver function studies; R94.31 Abnormal electrocardiogram [ECG] [EKG]; Z79.899 Other long term (current) drug therapy